=== PATIENT | male | born 1965 | race Caucasian/White ===

== ENCOUNTER 2021-11-07 20:07 | Emergency (ER) | payer BC, OTHER ==
[2021-11-07 20:19] VITALS: BMI 28.2
[2021-11-07 21:35] LABS: BASO % 0.9 % (0-2.0); EOS % 7.9 % (0-4.5); HEMATOCRIT 31.1 % (35.4-49); HEMOGLOBIN 10.4 GM/dL (11.7-16.9); LYMPH % 28.3 % (8-40); MCH 26.5 pg (25.7-33.7); MCHC 33.4 g/dl (32.0-35.9); MEAN CELL VOLUME 79.4 fl (80-96); MEAN PLT VOLUME 7.1 fl (7.5-11.1); MONO % 6.1 % (3.8-10.2); NEUT % 56.8 % (42.8-82.8); PLATELET COUNT 239 10^3/uL (134-434); RBC 3.92 M/mm3 (4.00-5.60); RDW 15.2 % (11.9-15.9); WHITE BLOOD COUNT 8.8 K/mm3 (4.0-10.0)
[2021-11-07 21:43] LABS: INR 1.16 (0.83-1.09); PROTHROMBIN TIME (PATIENT) 13.4 SEC (9.7-13.0)
[2021-11-07 22:05] LABS: CHLORIDE 110 mmol/L (98-107); SODIUM 145 mmol/L (136-145)
[2021-11-07 22:08] LABS: ALBUMIN 3.7 g/dl (3.4-5.0); ANION GAP 8 MMOL/L (8-16); BLOOD UREA NITROGEN 17.5 mg/dL (7-18); CALCIUM 8.7 mg/dL (8.5-10.1); CO2 26 mmol/L (21-32); GLUCOSE,RANDOM 139 mg/dL (74-106)
[2021-11-07 22:11] LABS: CREATININE 1.3 mg/dL (0.55-1.3); PHOSPHOROUS 3.3 mg/dL (2.5-4.9); SGPT/ALT 25 U/L (13-61)
[2021-11-07 22:12] LABS: SGOT/AST 28 U/L (15-37)
[2021-11-07 22:13] LABS: BILIRUBIN,TOTAL 0.6 mg/dL (0.2-1); TOT PROT 6.8 g/dl (6.4-8.2)
[2021-11-07 22:15] LABS: ALK PHOS 73 U/L (45-117)
[2021-11-07 22:16] LABS: N-TERMINAL BNP 214.5 pg/ml (5-125)
[2021-11-07 23:11] VITALS: BP 132/76; PULSE 78; TEMP 98.1
== END 2021-11-07 23:12 | disposition home or self-care (01) ==
LOC: JER 20:07
DX: R22.43 Localized swelling, mass and lump, lower limb, bilateral (principal)
CPT/HCPCS: 36415; 71046-TC-FY; 80053; 82550; 82553; 83735; 83880; 84100; 84484; 85025; 85610; 93005; 93010; 99285-25